=== PATIENT | female | born 1960 | race Caucasian/White ===

== ENCOUNTER 2020-07-14 14:49 | Outpatient (REF) | payer SELFPAY ==
[2020-07-14 15:52] LABS: Cholesterol 228 mg/dL
== END 2020-07-14 14:50 | disposition home or self-care (01) ==
LOC: HO.LNC 14:49
PROVIDERS: Visit Provider Pathology Anatomic Pathology & Clinical Pathology
DX: Z13.89 Encounter for screening for other disorder (principal)
CPT/HCPCS: 36415; 82465